=== PATIENT | male | born 1985 | race Caucasian/White ===

== ENCOUNTER 2020-02-19 11:33 | Emergency (ER) | payer BC, OTHER ==
[~2020-02-19] VITALS: Ht 180.3 cm; Wt 113.6 kg
[2020-02-19] MEDS ORDERED: IBUP-1022 PO (11:54)
[2020-02-19 14:19] VITALS: BP 130/92
== END 2020-02-19 14:20 | disposition home or self-care (01) ==
LOC: EDBD 11:33 → M ED 11:33
DX: F41.9 Anxiety disorder, unspecified (principal); R53.83 Other fatigue; Z87.891 Personal history of nicotine dependence